=== PATIENT | female | born 1970 | race Hispanic/Latino ===

== ENCOUNTER 2019-09-29 12:02 | Inpatient (IN) ==
[2019-09-29] MEDS ORDERED: NS 1,000 ML IV ONE (12:21)
[2019-09-29] MEDS ORDERED: TORADOL IV ONE (12:21)
[2019-09-29] MEDS ORDERED: ZOFRAN IV ONE (12:21)
--- NOTE | 2019-09-29 12:24 | PROVIDER DOCUMENTATION ---
HPI-Abdominal Pain/GI Problem - General Chief Complaint: Abdominal Pain Stated Complaint: ABD / BACK PAIN Time Seen by Provider: 09/29/19 12:14 Source: patient Allergies/Adverse Reactions: Patient Allergies Allergy/AdvReac Type Severity Reaction Status Date / Time No Known Allergies Allergy Verified 09/29/19 12:12 Home Medications: Home Medication List Medication Instructions Recorded Confirmed Last Taken Type Metformin [Glucophage] 500 mg PO DAILY 09/29/19 09/29/19 Unknown History - History of Present Illness-ABD Nature of Presenting Problems: 49 YOF PRESENTS WITH C/O 3 DAYS ABDOMINAL PAIN THAT WRAPS AROUND TO HER BACK, NAUSEA WITHOUT VOMITING. DENIES FEVER, CHILLS, DIARRHEA, CP, SOB Abdominal Pain Onset Location: reports: RUQ, LUQ Pain Radiation: reports: back Quality of Pain: reports: aching Severity in ED: reports: moderate Onset/Duration: reports: 3 days ago Timing: reports: still present Activities at Onset: reports: none Exposure to sick contacts?: No Modifying Factors: improves with: nothing Associated Symptoms: reports: nausea Last BM: 24 hours ago Dark Stools Present?: reports: none noticed Rectal Bleeding: reports: none Rectal Pain: reports: none Emesis Description: reports: none Bruising or Bleeding Gums?: No Similar Symptoms Previously?: No Recently seen or treated by another doctor?: No Review of Systems - Adult - REVIEW OF SYSTEMS - ADULT Constitutional: reports: no symptoms reported. denies: see HPI, chills, fever, fatique, night sweats, weight gain, weight loss, other Eyes: reports: no symptoms reported. denies: see HPI, discharge, dry eyes, decreased vision, blurred vision, double vision, eye pain, redness, other Ears, Nose, Mouth & Throat: reports: no symptoms reported. denies: see HPI, ear discharge, ear pain, hearing loss, tinnitus, epistaxis, sinus problem, nose pain, loose teeth, mouth/dental pain, mouth swelling, hoarseness, throat pain, throat swelling, other Cardiovascular: reports: no symptoms reported. denies: see HPI, chest pain, edema, heart murmur, irregular heart rate, orthopnea, palpitations, poor circulation, PND, syncope, other Respiratory: reports: no symptoms reported. denies: see HPI, chronic cough, cough, dyspnea on exertion, excessive sputum production, hemoptysis, pleurisy, shortness of breath, wheezing, other Gastrointestinal: reports: see HPI, abdominal pain, nausea. denies: no symptoms reported, hematemesis, constipation, diarrhea, difficulty swallowing, frequent heartburn, poor appetite, rectal bleeding, vomiting, other Genitourinary: reports: no symptoms reported. denies: see HPI, dysuria, discharge, frequency, flank pain, frequent UTI's, hematuria, hesitency, incontinence, urinary retention, urgency, other Musculoskeletal: reports: back pain. denies: no symptoms reported, see HPI, bone pain, frequent leg cramps, joint pain, joint swelling, muscle aches, muscle weakness, neck pain, other Integumentary: reports: no symptoms reported. denies: see HPI, hives, hair loss, itching, mole changes, nail changes, rash, skin sores/ulcer, skin thicken ing, other Neurological: reports: no symptoms reported. denies: see HPI, ataxia, dizziness/vertigo, headache/migraines, loss of balance, numbness, paresthesia, seizure, slurred speech, syncope, tremors, other Psychiatric: reports: no symptoms reported. denies: see HPI, anxiety, anti- depressant use, alcohol/drug dependence, depression, emotional problems, insomnia, panic attacks, suicidal thoughts, other Endocrine: reports: no symptoms reported. denies: see HPI, change in skin pigment, excessive sweating, goiter, cold intolerance, heat intolerance, increased hunger, increased thirst, polyuria, other Hematologic/Lymphatic: reports: no symptoms reported. denies: see HPI, blood clots, easy bruising, low blood count, lymphedema, prolonged bleeding, swollen lymph nodes, transfusions, other Allergic/Immunologic: reports: no symptoms reported. denies: see HPI, allergic reactions, allergic rhinitis, asthma, eczema, food allergy, frequent infections, hay fever, hives, positive PPD, urticaria, other Past History - Adult - PAST MEDICAL HISTORY-ADULT Review of Records: reports: Nursing Assessment Review, Social history reviewed & non-contributory. Physical Exam-General - PHYSICAL EXAM-ADULT Initial Vital Signs Reviewed: Yes - CONSTITUTIONAL General Appearance: alert, no apparent distress. negative: appears well (APPEARS IN PAIN) - EYES Eyes: PERRL/EOMI, pink conjunctivae - HEAD, EARS, NOSE, MOUTH & THROAT HENMT: normocephalic/atraumatic, moist mucous membranes, normal ENT inspection - NECK Neck: non-tender, full range of motion, supple - RESPIRATORY Respiratory: chest non-tender, lungs clear, normal breath sounds, no pleuratic chest pain, no respiratory distress, no accessory muscle use - CARDIOVASCULAR Cardiovascular: normal peripheral pulses, regular rate, rhythm - GASTROINTESTINAL (ABDOMEN) Abdominal Exam: tenderness (RUQ) - LYMPHATIC Lymphatic: no adenopathy - MUSCULOSKELETAL Back Exam: normal inspection, CVA tenderness Extremity: normal range of motion, non-tender, normal gait Peripheral Pulses: radial (R): 2+, radial (L): 2+ - SKIN Integumentary: normal color, normal turgor, warm/dry - NEUROLOGIC Neurologic: grossly normal - PSYCHIATRIC Psych/Mental Status: normal mood/affect, oriented x 3 Progress - PLAN OF CARE/RESULTS Progress/Plan/Lab Results: Vital Signs - 8 hr 09/29/19 12:10 Temperature 98 F Pulse Rate 87 Respiratory Rate 18 Blood Pressure 127/75 O2 Sat by Pulse Oximetry 99 Orders Category Date Time Status Saline Loc NOW Care 09/29/19 12:[address] ABD/PELVIS W/IV CONT ONLY [CT] Stat Exams 09/29/19 12:20 Ordered CBC WITH ELECTRONIC DIFF [HEME] Stat Lab 09/29/19 12:13 Uncollected COMPREHENSIVE METABOLIC PANEL [CHEM] Stat Lab 09/29/19 12:13 Uncollected LIPASE [CHEM] Stat Lab 09/29/19 12:13 Uncollected UA NIMS W/REFLEX CULT [URINALYSIS] Stat Lab 09/29/19 12:13 Uncollected Result Diagrams: 09/29/19 12:23 09/29/19 12:23 - CT/MRI 1 CT Study: Abdomen, Pelvis Impression: See EMR Report (EXAM: CT ABD/PELVIS W/IV CONT ONLY HISTORY: abd pain, TENDERNESS TECHNIQUE: CT abdomen and pelvis with intravenous contrast COMPARISON: None FINDINGS: there are several stones within the gallbladder. No adjacent inflammation. No splenomegaly. Normal liver, pancreas, adrenal glands, and kidneys. No hydronephrosis. Normal aorta. Normal appendix. No abscess. No bowel obstruction. No ascites. There appear to be several uterine fibroids. Urinary bladder is only mildly distended. Anterior to the urinary bladder is nonspecific soft tissue prominence to the anterior pelvic wall/musculature. This area is difficult to measure, but at least measures 2.5 x 3.5 cm. There is a smaller area within the left rectus muscle measuring 14 mm in diameter. IMPRESSION: 1.Nonspecific anterior pelvic wall soft tissue fullness which could be related to prior surgical scarring or even endometriosis. 2.Uterine fibroids 3.Cholelithiasis This exam was performed using automated exposure control, adjustment of mA or kV according to patient size, and/or use of iterative reconstruction technique. Electronically signed by Liam Galvan 09/29/2019 1:49 PM 09/29/19 1349 Interpreting Physician: Liam Galvan MD Dictated Date/Time: 09/29/19 1342 cc: Juanita Regan; None,PCP) - CONSULTS/PCP/HOSPITALIST Notification #1 *Consult/PCP/Hospitalist*: DR HERNANDES Time Discussed: 13:48 Consult Disposition: Admit Departure - Departure Date of Disposition Decision: 09/29/19 Time of Disposition Decision: 13:47 DIAGNOSIS: UTI (urinary tract infection), Neutropenia, Hyponatremia Disposition: ADMITTED INPATIENT 09 Certified Medical Emergency: Emergent Condition: Stable Referrals and Follow-Ups: None,PCP [Primary Care Provider] - - Critical Care Note This patient required my direct & personal management of CC.: No Attestation - Physician/ DORYS Attestation Patient care was provided by Advanced Practice Provider:: Yes Advanced Practice Provider:: Juanita Regan Advanced Practice Provider documentation review:: The Mid-level provider documentation, treatment plan and medical decision making was reviewed by the physician who agrees with all treatment and medical decision making by the P. The physician spent face to face time with patient:: No Advanced Practice Provider documentation review:: Supervising physician onsite and consulted in the evaluation and care of this patient. The physician did not have a face to face encounter with the patient.
[2019-09-29 12:52] LABS: URINE SOURCE CLEAN CATCH
[2019-09-29 12:54] LABS: BILIRUBIN URINE NEGATIVE (NEGATIVE); BLOOD URINE NEGATIVE (NEGATIVE); COLOR YELLOW; GLUCOSE URINE >1000 mg/dL (NEGATIVE); KETONE URINE 10 mg/dL (NEGATIVE); LEUKOCYTES URINE NEGATIVE (NEGATIVE); NITRITE URINE POSITIVE (NEGATIVE); PH URINE 6.5; PROTEIN URINE TRACE mg/dL (NEGATIVE); SP GRAVITY URINE 1.039; TURBIDITY URINE CLEAR (CLEAR); UROBILINOGEN URINE NORMAL (NORMAL)
[2019-09-29 12:56] LABS: UR EPITHELIAL CELLS >10 /HPF (<10); URINE BACTERIA 4+ /HPF; URINE RBC <10 /HPF (<10); URINE WBC <10 /HPF (<10)
[2019-09-29] MEDS ORDERED: ROCEPHIN 1 GM in NS 50 ML IV ONE (13:02)
[2019-09-29 13:06] LABS: AGAP 12; ALBUMIN 4.2 g/dL (3.5-5.0); ALKALINE PHOSPHATASE 87 U/L (32-104); BUN 10 mg/dL (8-22); CALCIUM 8.5 mg/dL (8.8-10.2); CHLORIDE 95 mmol/L (98-107); COSMO 270; CREATININE 0.5 mg/dL (0.5-0.9); ESTIMATED GFR > 60; GLUCOSE 283 mg/dL (70-104); GOT 31 U/L (10-30); GPT 28 U/L (10-36); LIPASE 26 U/L (13-60); POTASSIUM 3.8 mmol/L (3.5-5.1); SODIUM 130 mmol/L (136-145); TCO2 22 mmol/L (25-35); TOTAL PROTEIN 7.5 g/dL (6.3-8.3)
[2019-09-29 13:07] LABS: BASO# 0.02 X1000 (0.0-0.2); BASO% 1.2 % (0.0-0.8); EOS# 0.03 X1000 (0.0-0.7); EOS% 1.8 % (0.0-10.0); HEMATOCRIT 34.5 % (37.0-47.0); HEMOGLOBIN 10.5 g/dL (12.0-16.0); LYMPH# 0.53 X1000 (1.2-3.4); LYMPH% 32.1 % (20.5-51.1); MCH 19.9 PG (27-31); MCHC 30.4 g/dL (33-37); MCV 65.3 FL (81-99); MONO# 0.38 X1000 (0.11-0.59); MPV 11.6 FL (7.4-10.4); NEUT# 0.69 X1000 (1.4-6.5); NEUT% 41.9 % (42.2-75.2); PLT 200 X1000 (130-400); RBC 5.28 XMIL (4.2-5.4); RDW 15.7 % (11.5-14.5); WBC 1.65 X1000 (4.8-10.8)
--- NOTE | 2019-09-29 13:52 | Diag Imaging Result Doc PS360 ---
EXAM: CT ABD/PELVIS W/IV CONT ONLY HISTORY: abd pain, TENDERNESS TECHNIQUE: CT abdomen and pelvis with intravenous contrast COMPARISON: None FINDINGS: there are several stones within the gallbladder. No adjacent inflammation. No splenomegaly. Normal liver, pancreas, adrenal glands, and kidneys. No hydronephrosis. Normal aorta. Normal appendix. No abscess. No bowel obstruction. No ascites. There appear to be several uterine fibroids. Urinary bladder is only mildly distended. Anterior to the urinary bladder is nonspecific soft tissue prominence to the anterior pelvic wall/musculature. This area is difficult to measure, but at least measures 2.5 x 3.5 cm. There is a smaller area within the left rectus muscle measuring 14 mm in diameter. IMPRESSION: 1.Nonspecific anterior pelvic wall soft tissue fullness which could be related to prior surgical scarring or even endometriosis. 2.Uterine fibroids 3.Cholelithiasis This exam was performed using automated exposure control, adjustment of mA or kV according to patient size, and/or use of iterative reconstruction technique. Electronically signed by Liam Galvan 09/29/2019 1:49 PM
[2019-09-29] MEDS ORDERED: NORCO-5 PO PRN (14:28)
[2019-09-29] MEDS ORDERED: ZOFRAN IV PRN (14:28)
[2019-09-29] MEDS ORDERED: FLU VACCINE IM ONE (16:30)
[2019-09-29] MEDS ORDERED: PNEUMOVAX 23 IM ONE (16:45)
[2019-09-29] MEDS: HUMALOG (PARKWAY) SUBQ SCH ×2 (16:52→20:02)
[2019-09-29] MEDS: ZOSYN 3.375 GM in NS 50 ML IV SCH ×2 (17:03→21:44)
[2019-09-29] MEDS: NS 1,000 ML IV SCH (17:03)
--- NOTE | 2019-09-30 00:37 | HISTORY AND PHYSICAL ---
CHIEF COMPLAINT: Abdominal pain. HISTORY OF PRESENT ILLNESS: Patient is a very pleasant 49-year-old female who presented to the ER with chief complaint of 3 to 4 days of abdominal pain, left flank pain, continued to worsen, having nausea. Denies any vomiting. Denies any fevers, chills. Denies any urinary difficulty. Denies any diarrhea or sick contacts. ALLERGIES: No known drug allergies. MEDICATIONS: Metformin. REVIEW OF SYSTEMS: Denies any cough, congestion, shortness of breath. Denies fevers, chills. Denies diarrhea, dysuria or frequency. Denies hesitancy. Denies polyuria or polydipsia. Denies skin rashes, weight loss or weight gain. PAST MEDICAL HISTORY: Significant only for diabetes. SOCIAL HISTORY: She is employed. Does not smoke or drink. PHYSICAL EXAMINATION: VITAL SIGNS: Reviewed. Temperature 98 degrees, pulse 87, respiratory rate 18, BP 127/75. GENERAL: Patient is very pleasant, she is in no respiratory distress. She is lying on the bed. HEENT: Normocephalic. NECK: Supple. CARDIOVASCULAR: Regular rate. No murmurs. CHEST: Clear, unlabored. ABDOMEN: Soft. Minimal tender in the left upper quadrant. Does have positive left flank tenderness. EXTREMITIES: Moves all extremities well. No edema. NEUROLOGIC: No focal changes. SKIN: Warm and dry. No rashes. ASSESSMENT: 1. pyelonephritis. 2. Diabetes. 3. Leukopenia. Her white count is at 1.6. She notes that she has had labs done earlier this year, but does not recall any abnormal results. PLAN: We are going to admit patient to the hospital, place her on Zosyn. Recheck her labs. Follow her blood sugars. Further orders as needed. cc: Dong Danielle MD
[2019-09-30] MEDS: ZOSYN 3.375 GM in NS 50 ML IV SCH ×4 (04:00→23:25)
[2019-09-30 05:49] LABS: BASO# 0.01 X1000 (0.0-0.2); BASO% 0.6 % (0.0-0.8); EOS# 0.15 X1000 (0.0-0.7); EOS% 8.7 % (0.0-10.0); HEMATOCRIT 30.5 % (37.0-47.0); IMM GRAN# 0.01 X1000 (0.0-0.04); IMM GRAN% 0.6 % (0.0-0.5); LYMPH# 0.72 X1000 (1.2-3.4); LYMPH% 41.6 % (20.5-51.1); MCH 19.5 PG (27-31); MCHC 29.5 g/dL (33-37); MCV 66.2 FL (81-99); MONO# 0.34 X1000 (0.11-0.59); MONO% 19.7 % (1.7-9.3); MPV 11.4 FL (7.4-10.4); NEUT% 28.8 % (42.2-75.2); PLT 159 X1000 (130-400); RBC 4.61 XMIL (4.2-5.4); RDW 15.9 % (11.5-14.5); WBC 1.73 X1000 (4.8-10.8)
[2019-09-30 06:08] LABS: AGAP 10; ALBUMIN 3.4 g/dL (3.5-5.0); ALKALINE PHOSPHATASE 70 U/L (32-104); BUN 6 mg/dL (8-22); CALCIUM 7.8 mg/dL (8.8-10.2); CHLORIDE 107 mmol/L (98-107); COSMO 278; CREATININE 0.4 mg/dL (0.5-0.9); ESTIMATED GFR > 60; GLUCOSE 142 mg/dL (70-104); GOT 24 U/L (10-30); GPT 22 U/L (10-36); POTASSIUM 3.2 mmol/L (3.5-5.1); SODIUM 139 mmol/L (136-145); TCO2 22 mmol/L (25-35); TOTAL BILIRUBIN < 0.15 mg/dL (0.20-1.00)
[2019-09-30 06:14] LABS: HEMOGLOBIN A1C 11.8 % (4.8-6.0)
[2019-09-30] MEDS: HUMALOG (PARKWAY) SUBQ SCH ×4 (06:25→20:45)
[2019-09-30] MEDS ORDERED: KLOR-CON PO ONE (08:03)
[2019-09-30] MEDS: NS 1,000 ML IV SCH (10:28)
[2019-09-30] MEDS: TYLENOL PO PRN (10:43)
--- NOTE | 2019-10-01 03:50 | PROGRESS NOTE ---
DATE: 09/30/2019 SUBJECTIVE: Patient notes that she is feeling a little bit better. She is having less left flank pain although it is still present. Less nausea. Denies any fevers or chills. PHYSICAL EXAMINATION: Vital Signs: Reviewed. Temperature 98.4 degrees, pulse 69, respiratory 22, BP 94/56. General: Patient is awake, pleasant. She is sitting in the bed talking with her family. She is in no respiratory distress. She is not currently ill appearing. HEENT: Normocephalic. Neck: Supple. Cardiovascular: Regular rate. Chest: Clear. Abdomen: Soft. Extremities: Moves all extremities. ASSESSMENT: 1. Leukopenia. White count at 1.4 with an absolute neutrophil count low as well. Hopefully, this is simply due to her current infection. A slide has been sent to Pathology for evaluation of the peripheral smear. 2. Pyelonephritis. 3. Diabetes. 4. Hyponatremia, improved. Sodium is up to 139. 5. Hypokalemia. We will replace. 6. Sepsis. PLAN: We are going to continue patient in the hospital. Continue antibiotics. Await culture. If her white count does not improve in the morning, certainly may require transfer and hematology evaluation. cc: Dong Danielle MD
[2019-10-01] MEDS: NS 1,000 ML IV SCH ×2 (03:53→17:51)
[2019-10-01] MEDS: ZOSYN 3.375 GM in NS 50 ML IV SCH (05:39)
[2019-10-01 06:45] LABS: BASO# 0.05 X1000 (0.0-0.2); EOS# 0.24 X1000 (0.0-0.7); EOS% 9.4 % (0.0-10.0); HEMATOCRIT 29.5 % (37.0-47.0); HEMOGLOBIN 8.8 g/dL (12.0-16.0); LYMPH# 1.25 X1000 (1.2-3.4); LYMPH% 48.8 % (20.5-51.1); MCH 19.9 PG (27-31); MCHC 29.8 g/dL (33-37); MCV 66.6 FL (81-99); MONO# 0.32 X1000 (0.11-0.59); MONO% 12.5 % (1.7-9.3); NEUT% 27.3 % (42.2-75.2); PLT 151 X1000 (130-400); RBC 4.43 XMIL (4.2-5.4); RDW 15.9 % (11.5-14.5); WBC 2.56 X1000 (4.8-10.8)
[2019-10-01 07:02] LABS: AGAP 9; ALBUMIN 3.1 g/dL (3.5-5.0); ALKALINE PHOSPHATASE 65 U/L (32-104); BUN 5 mg/dL (8-22); CALCIUM 7.7 mg/dL (8.8-10.2); CHLORIDE 110 mmol/L (98-107); COSMO 279; CREATININE 0.4 mg/dL (0.5-0.9); ESTIMATED GFR > 60; GLUCOSE 149 mg/dL (70-104); GOT 19 U/L (10-30); GPT 16 U/L (10-36); POTASSIUM 3.7 mmol/L (3.5-5.1); SODIUM 140 mmol/L (136-145); TCO2 21 mmol/L (25-35); TOTAL BILIRUBIN < 0.15 mg/dL (0.20-1.00); TOTAL PROTEIN 5.6 g/dL (6.3-8.3)
[2019-10-01] MEDS: HUMALOG (PARKWAY) SUBQ SCH ×4 (07:28→22:09)
[2019-10-01 08:52] LABS: BANDS 4 % (0-1); EOS 6 % (1-10); LYMPHS 44 % (21-51); MONO 9 % (1-9); SEGS 37 % (42-75)
[2019-10-01] MEDS: MAXIPIME 2 GM/NS 2 GM/100 ML IVPB IV SCH ×2 (10:23→22:52)
[2019-10-01] MEDS: TYLENOL PO PRN (12:18)
--- NOTE | 2019-10-01 12:27 | PROGRESS NOTE ---
DATE: 10/01/2019 SUBJECTIVE: The patient notes that he is feeling a lot better. Denies any fevers or chills. Denies chest pain. States still having some flank pain, but overall she is improving. OBJECTIVE: Vital Signs: Temperature 98, pulse 69, respiratory rate 18, BP 90/56. General: The patient is pleasant, in no distress. HEENT: Normocephalic. Neck: Supple. Cardiovascular: Regular rate. Chest: Clear. Abdomen: Soft. Extremities: Moves all extremities. Neurologic: No changes. ASSESSMENT: 1. Pyelonephritis. 2. Leukopenia. 3. Diabetes. PLAN: We are going to continue the patient in the hospital. White count thankfully actually is improving to 2.5. Absolute neutrophil count also has improved to 700. Hemoglobin and hematocrit are stable. Sodium is improved. Will continue her on cefepime, await culture, and will follow. cc: Dong Danielle MD
[2019-10-02 05:53] LABS: BASO# 0.02 X1000 (0.0-0.2); BASO% 0.5 % (0.0-0.8); EOS# 0.15 X1000 (0.0-0.7); EOS% 3.4 % (0.0-10.0); HEMATOCRIT 28.8 % (37.0-47.0); HEMOGLOBIN 8.4 g/dL (12.0-16.0); IMM GRAN# 0.01 X1000 (0.0-0.04); IMM GRAN% 0.2 % (0.0-0.5); LYMPH# 1.37 X1000 (1.2-3.4); LYMPH% 31.4 % (20.5-51.1); MCH 19.4 PG (27-31); MCHC 29.2 g/dL (33-37); MCV 66.4 FL (81-99); MONO# 0.33 X1000 (0.11-0.59); MONO% 7.6 % (1.7-9.3); MPV 11.7 FL (7.4-10.4); NEUT# 2.48 X1000 (1.4-6.5); NEUT% 56.9 % (42.2-75.2); PLT 157 X1000 (130-400); RBC 4.34 XMIL (4.2-5.4); RDW 15.9 % (11.5-14.5); WBC 4.36 X1000 (4.8-10.8)
[2019-10-02 06:04] LABS: AGAP 12; ALBUMIN 3.1 g/dL (3.5-5.0); ALKALINE PHOSPHATASE 75 U/L (32-104); BUN 8 mg/dL (8-22); CALCIUM 7.8 mg/dL (8.8-10.2); CHLORIDE 109 mmol/L (98-107); COSMO 279; CREATININE 0.3 mg/dL (0.5-0.9); ESTIMATED GFR > 60; GLUCOSE 118 mg/dL (70-104); GOT 23 U/L (10-30); GPT 17 U/L (10-36); POTASSIUM 3.6 mmol/L (3.5-5.1); SODIUM 140 mmol/L (136-145); TCO2 20 mmol/L (25-35); TOTAL BILIRUBIN < 0.15 mg/dL (0.20-1.00); TOTAL PROTEIN 5.6 g/dL (6.3-8.3)
[2019-10-02] MEDS: HUMALOG (PARKWAY) SUBQ SCH ×4 (06:27→21:23)
[2019-10-02 06:48] LABS: BANDS 2 % (0-1); EOS 2 % (1-10); LYMPHS 30 % (21-51); MONO 6 % (1-9); SEGS 60 % (42-75)
[2019-10-02] MEDS: NS 1,000 ML IV SCH ×2 (06:48→21:15)
[2019-10-02] MEDS: MAXIPIME 2 GM/NS 2 GM/100 ML IVPB IV SCH (10:58)
[2019-10-03] MEDS: MAXIPIME 2 GM/NS 2 GM/100 ML IVPB IV SCH (00:07)
[2019-10-03 06:14] VITALS: BP 118/58
[2019-10-03] MEDS: HUMALOG (PARKWAY) SUBQ SCH ×2 (06:40→10:48)
--- NOTE | 2019-10-03 07:28 | PROGRESS NOTE ---
DATE: 10/02/2019 SUBJECTIVE: Patient notes she feels tremendously better. Back pain is better. Nausea is better, wanting to go home. PHYSICAL EXAMINATION: Vital Signs: Temperature 98, pulse 60s, respiratory rate 18, blood pressure 100 systolic. General: Patient is very pleasant. She is in no respiratory distress. HEENT: Normocephalic. Neck: Supple. Cardiovascular: Regular rate. Chest: Clear. Flank pain is resolved. Overall, she is feeling better. ASSESSMENT: 1. Sepsis, resolved. 2. Diabetes, stable. 3. Pyelonephritis, improved. 4. Leukopenia with a white count of 1.7, absolute neutrophil count of 0.5. This is improved. Currently white count is 4. 5. Anemia of chronic disease. 6. Hyponatremia, resolved. 7. Hypokalemia, resolved. PLAN: Overall, the patient has improved. Certainly we hoped to send her home today if her culture and sensitivity allows such. We are waiting on her sensitivities. It still shows gram- negative rods. Otherwise, we will keep her in the hospital until we can ascertain which antibiotic to discharge on. cc: Dong Danielle MD
--- NOTE | 2019-10-04 10:35 | DISCHARGE SUMMARY ---
ADMISSION DATE: 09/29/2019 DISCHARGE DATE: 10/03/2019 ADMISSION DIAGNOSES: 1. Pyelonephritis. 2. Diabetes. 3. Leukopenia. DISCHARGE DIAGNOSES: 1. Sepsis, resolved. 2. Diabetes mellitus type 2, stable. 3. Pyelonephritis, improved. 4. Leukopenia, improved. White count is up. 5. Anemia of chronic disease. 6. Hyponatremia, resolved. 7. Hypokalemia, resolved. 8. Positive Escherichia coli urinary tract infection which was sensitive to the Zosyn she received CONSULTATIONS: None. SURGERIES AND PROCEDURES: None. HOSPITAL COURSE: Ms. Xiomara Bone is a 49-year-old female, presented to [facility] with complaints of 3 to 4 days worth of abdominal pain, left flank pain with nausea. She was diagnosed with pyelonephritis. She also had and abdominal and pelvic CT. It showed some cholelithiasis but it was not obstructing. She was initiated on antibiotic, Zosyn. Her white cell count was low when she came in. It started to improve during her stay, and she is discharged home. DISCHARGE VITAL SIGNS: Temperature 98.7 degrees, heart rate 73, respiratory rate 14, blood pressure 118/58, O2 saturation 97% on room air. DISCHARGE LABORATORY DATA: White blood cells 4000, hemoglobin 8, hematocrit 28, platelet count 157,000. Sodium 140, potassium 3.6, BUN 8, creatinine 0.3, glucose 118, calcium 7.8, bilirubin is less than 0.15, AST 23, ALT 17, albumin 3.1. Urinalysis: There was trace protein, greater than 1000 glucose, 10 ketones, positive nitrites, 4+ urine bacteria. Urine was positive for E coli. It was extended spectrum beta-lactamase negative, resistant to ampicillin and sulbactam, resistant to gentamicin, resistant to levofloxacin, and indeterminate to tobramycin. Blood cultures negative to date. PERT IMAGING: Abdominal and pelvic CT: Nonspecific anterior pelvic wall soft tissue fullness which could be related to prior surgical scarring or even endometriosis. She also had uterine fibroids and cholelithiasis. DISCHARGE MEDICATIONS: 1. Metformin 500 mg p.o. daily. 2. Cephalexin 500 mg p.o. every 8 hours, total of 21 capsules, which I believe is 7 days. 3. Tylenol 650 mg p.o. every 6 hours p.r.n. DISCHARGE DIET: Diabetic, neutropenic diet. DISCHARGE ACTIVITY: As tolerated. DISCHARGE PHYSICIAN FOLLOWUP: None. DISCHARGE INSTRUCTIONS: If your condition changes, contact your physician and/or return to the emergency department. Changes may include but are not limited to shortness of breath, increased fatigue, excessive bleeding, unexplained weight loss or gain, unmanageable pain, signs or symptoms of infection. DISCHARGE DISPOSITION: Home. Dictated by GEENA Bob for Say Yoder MD Addendum: Patient seen and examined by myself. Agree with GEENA note. It reflects my assessment and plan. Patient is being discharged in stable condition to home. cc: GEENA Bob MD [facility]
== END 2019-10-03 12:05 | disposition home or self-care (01) | DRG 872 ==
LOC: P.ED 12:02 → P.MEDSURG 15:38 → SUATTDRO 15:38
PROVIDERS: ATTEND Internal Medicine